=== PATIENT | male | born 1990 | race Caucasian/White ===

== ENCOUNTER 2019-11-28 11:05 | Outpatient (CLI) | payer BC, SELFPAY ==
[2019-11-28 12:56] LABS: Calculated LDL 100 mg/dL (<100); Cholesterol 185 mg/dL (<200); Glucose 97 mg/dL (74-106); HDL Cholesterol 66 mg/dL (40-60); Triglyceride 98 mg/dL (<150)
== END 2019-11-28 11:25 ==
PROVIDERS: Visit Provider Family Medicine
DX: E78.5 Hyperlipidemia, unspecified (principal); R73.9 Hyperglycemia, unspecified
CPT/HCPCS: 36415; 80061; 82947

== ENCOUNTER 2023-05-10 12:23 | Outpatient (REF) | payer BC, SELFPAY | END 2023-05-10 12:24 | disposition home or self-care (01) | LOC: LBN 12:23 | PROVIDERS: PCP Nurse Practitioner Family; Visit Provider Nurse Practitioner Family | DX: H92.12 Otorrhea, left ear (principal) | CPT/HCPCS: 87070; 87205 ==